=== PATIENT | male | born 1930 | race Caucasian/White ===

== ENCOUNTER → 2016-10-24 | Outpatient (CLI) | payer MEDICARE, BC ==
[2016-10-24 14:27] LABS: Aty Lym Flag Marked; CH 29.6; HCT 39.9 % (39.0-53.0); HDW 3.01; HGB 13.2 gm/dL (13.0-17.5); Hypochromasia Slight; MCH 30.8 pg (25.0-35.0); MCHC 33.1 g/dL (31.0-37.0); Mean Platelet Volume 7.3; RBC 4.29 m/uL (4.30-5.90); RDW 14.8 % (11.5-15.5); WBC 9.6 k/uL (3.8-10.6); WBC (Perox) 9.68
[2016-10-24 14:29] LABS: INR 0.9 (<1.1); Partial Thromboplastin Time 22.9 sec (22.0-30.0); Prothrombin Time 9.6 sec (9.0-12.0)
[2016-10-24 14:36] LABS: ALT 27 U/L (21-72); AST 15 U/L (17-59); Alkaline Phosphatase 94 U/L (38-126); Anion Gap 7 mmol/L; Blood Urea Nitrogen 19 mg/dL (9-20); Calcium 8.9 mg/dL (8.4-10.2); Carbon Dioxide 28 mmol/L (22-30); Chloride 105 mmol/L (98-107); Glucose 219 mg/dL (74-99); Non-African American GFR(MDRD) 56 (>60 ml/min/1.73 sqM); Potassium 4.7 mmol/L (3.5-5.1); Sodium 140 mmol/L (137-145); Total Bilirubin 0.6 mg/dL (0.2-1.3); Total Protein 5.1 g/dL (6.3-8.2)
[2016-10-24 15:26] LABS: Add Differential Manual Differential
[2016-10-24 15:34] LABS: Band Neutrophils % 0.5 %; Nucleated Red Blood Cells 0 /100 WBC (0-0); Total Cells Counted 200
--- NOTE | 2016-10-27 08:16 | XR ---
EXAMINATION TYPE: XR chest 2V DATE OF EXAM: 10/24/2016 COMPARISON: Prior chest x-ray 09/08/2014 HISTORY: Cough, R05. TECHNIQUE: Frontal and lateral views of the chest are obtained. FINDINGS: Metallic stent graft in the proximal aorta is now present. Atherosclerotic and ectatic aor ta is present. There is chronic parenchymal change with basilar atelectasis and/or fibrosis. There is no suspicious focal airspace opacity, pleural effusion, or pneumothorax seen bilaterally. Osseous st ructures are intact. Cholecystectomy clips are noted. IMPRESSION: Chronic changes without suspicious acute pulmonary process identified.
== END | disposition home or self-care (01) ==
LOC: RADXRMAIN 13:05
PROVIDERS: ATTEND Family Medicine
DX: C95.90 Leukemia, unspecified not having achieved remission (principal); R91.8 Other nonspecific abnormal finding of lung field; R05 Cough; D64.9 Anemia, unspecified; E11.9 Type 2 diabetes mellitus without complications
CPT/HCPCS: 36415; 71020; 80053; 85025; 85610; 85730

== ENCOUNTER 2016-11-23 14:35 | Inpatient (IN) | payer MEDICARE, BC ==
[2016-11-23] MEDS ORDERED: SODIUM CHLORIDE 0.9% 1,000 ML IV STA (14:44)
[2016-11-23] MEDS ORDERED: ONDANSETRON 4 MG/2 ML VIAL IVP STA (14:44)
[2016-11-23] MEDS ORDERED: PANTOPRAZOLE 40 MG/10 ML VIAL IVP STA (14:44)
[2016-11-23] MEDS ORDERED: AZITHROMYCIN 500 MG TAB PO STA (14:46)
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
[2016-11-23 15:20] LABS: Aty Lym Flag Marked; CH 30.2; CHCM 32.8; HCT 41.7 % (39.0-53.0); HDW 2.91; MCH 31.2 pg (25.0-35.0); MCHC 33.6 g/dL (31.0-37.0); MCV 92.8 fL (80.0-100.0); Mean Platelet Volume 7.7; RBC 4.49 m/uL (4.30-5.90); RDW 14.1 % (11.5-15.5); WBC (Perox) 13.76
[2016-11-23 15:30] LABS: Partial Thromboplastin Time 23.5 sec (22.0-30.0); Prothrombin Time 10.6 sec (9.0-12.0)
[2016-11-23 15:32] LABS: ALT 31 U/L (21-72); AST 30 U/L (17-59); Alkaline Phosphatase 113 U/L (38-126); Anion Gap 11 mmol/L; Blood Urea Nitrogen 18 mg/dL (9-20); Calcium 9.6 mg/dL (8.4-10.2); Carbon Dioxide 22 mmol/L (22-30); Chloride 105 mmol/L (98-107); Glucose 249 mg/dL (74-99); Non-African American GFR(MDRD) 58 (>60 ml/min/1.73 sqM); Phosphorous 3.3 mg/dL (2.5-4.5); Potassium 4.7 mmol/L (3.5-5.1); Sodium 138 mmol/L (137-145); Total Bilirubin 1.2 mg/dL (0.2-1.3); Total Protein 5.5 g/dL (6.3-8.2)
[2016-11-23 15:38] LABS: Add Differential Manual Differential
[2016-11-23 15:39] LABS: Creatine Kinase 24 U/L (55-170)
[2016-11-23 15:41] LABS: Manual Review Performed; Nucleated Red Blood Cells 0 /100 WBC (0-0); RBC Morphology Normal; Total Cells Counted 100
[2016-11-23 15:46] LABS: Appearance,Urine Clear (Clear); Bilirubin,Urine Negative (Negative); Glucose,Urine (UA) 4+ (Negative); Leukocyte Esterase,Urine Negative (Negative); Nitrite,Urine Negative (Negative); Particle Count 555; Protein,Urine 2+ (Negative); RBC,Urine 1 /hpf (0-5); Squamous Epithelial Cell,Urine 1 /hpf (0-4); UA Billing (MACRO vs. MICRO) MICRO; Urobilinogen,Urine <2.0 mg/dL (<2.0); WBC,Urine 11 /hpf (0-5)
[2016-11-23 15:48] LABS: Ketones,Urine 2+ (Negative)
[2016-11-23 15:53] LABS: Creatine Kinase MB 0.5 ng/mL (0.0-2.4); Troponin I <0.012 ng/mL (0.000-0.034)
[2016-11-23] MEDS ORDERED: ONDANSETRON 4 MG/2 ML VIAL IVP PRN (18:58)
[2016-11-23] MEDS ORDERED: SODIUM CHLORIDE 0.9% 1,000 ML IV ONE (18:58)
--- NOTE | 2016-11-23 19:00 | ED ---
Medical Decision Making - Medical Decision Making [address] ER for evaluation. Patient to ER for evaluation nausea vomiting, upon discharge patient remained to continuing vomit, patient be admitted for observation, symptom control - Lab Data Result diagrams: 11/23/16 15:10 11/23/16 15:10 Lab Results 11/23/16 11/23/16 11/23/16 Range/Units 15:10 15:10 15:10 WBC 14.0 H (3.8-10.6) k/uL RBC 4.49 (4.30-5.90) m/uL Hgb 14.0 (13.0-17.5) gm/dL Hct 41.7 (39.0-53.0) % MCV 92.8 (80.0-100.0) fL MCH 31.2 (25.0-35.0) pg MCHC 33.6 (31.0-37.0) g/dL RDW 14.1 (11.5-15.5) % Plt Count 146 L (150-450) k/uL Neutrophils % (Manual) 59 % Lymphocytes % (Manual) 30 % Monocytes % (Manual) 11 % Neutrophils # (Manual) 8.26 H (1.3-7.7) k/uL Lymphocytes # (Manual) 4.20 (1.0-4.8) k/uL Monocytes # (Manual) 1.54 H (0-1.0) k/uL Nucleated RBCs 0 (0-0) /100 WBC Manual Slide Review Performed RBC Morphology Normal PT (9.0-12.0) sec INR (<1.2) APTT (22.0-30.0) sec Sodium 138 (137-145) mmol/L Potassium 4.7 (3.5-5.1) mmol/L Chloride 105 (98-107) mmol/L Carbon Dioxide 22 (22-30) mmol/L Anion Gap 11 mmol/L BUN 18 (9-20) mg/dL Creatinine 1.20 (0.66-1.25) mg/dL Est GFR (MDRD) Af Amer >60 (>60 ml/min/1.73 sqM) Est GFR (MDRD) Non-Af 58 (>60 ml/min/1.73 sqM) Glucose 249 H (74-99) mg/dL Plasma Lactic Acid [place] (0.7-2.0) mmol/L Calcium 9.6 (8.4-10.2) mg/dL Phosphorus 3.3 (2.5-4.5) mg/dL Magnesium 2.0 (1.6-2.3) mg/dL Total Bilirubin 1.2 (0.2-1.3) mg/dL AST 30 (17-59) U/L ALT 31 (21-72) U/L Alkaline Phosphatase 113 (38-126) U/L Total Creatine Kinase 24 L (55-170) U/L CK-MB (CK-2) 0.5 (0.0-2.4) ng/mL CK-MB (CK-2) Rel Index 2.1 Troponin I <0.012 (0.000-0.034) ng/mL Total Protein 5.5 L (6.3-8.2) g/dL Albumin 3.7 (3.5-5.0) g/dL Urine Color Urine Appearance (Clear) Urine pH (5.0-8.0) Ur Specific [place] (1.001-1.035) Urine Protein (Negative) Urine Glucose (UA) (Negative) Urine Ketones (Negative) Urine Blood (Negative) Urine Nitrite (Negative) Urine Bilirubin (Negative) Urine Urobilinogen (<2.0) mg/dL Ur Leukocyte Esterase (Negative) Urine RBC (0-5) /hpf Urine WBC (0-5) /hpf Ur Squamous Epith Cells (0-4) /hpf Hyaline Casts (0-2) /lpf 11/23/16 11/23/16 11/23/16 Range/Units 15:10 15:10 15:20 WBC (3.8-10.6) k/uL RBC (4.30-5.90) m/uL Hgb (13.0-17.5) gm/dL Hct (39.0-53.0) % MCV (80.0-100.0) fL MCH (25.0-35.0) pg MCHC (31.0-37.0) g/dL RDW (11.5-15.5) % Plt Count (150-450) k/uL Neutrophils % (Manual) % Lymphocytes % (Manual) % Monocytes % (Manual) % Neutrophils # (Manual) (1.3-7.7) k/uL Lymphocytes # (Manual) (1.0-4.8) k/uL Monocytes # (Manual) (0-1.0) k/uL Nucleated RBCs (0-0) /100 WBC Manual Slide Review RBC Morphology PT 10.6 (9.0-12.0) sec INR 1.0 (<1.2) APTT 23.5 (22.0-30.0) sec Sodium (137-145) mmol/L Potassium (3.5-5.1) mmol/L Chloride (98-107) mmol/L Carbon Dioxide (22-30) mmol/L Anion Gap mmol/L BUN (9-20) mg/dL Creatinine (0.66-1.25) mg/dL Est GFR (MDRD) Af Amer (>60 ml/min/1.73 sqM) Est GFR (MDRD) Non-Af (>60 ml/min/1.73 sqM) Glucose (74-99) mg/dL Plasma Lactic Acid [place] 1.5 (0.7-2.0) mmol/L Calcium (8.4-10.2) mg/dL Phosphorus (2.5-4.5) mg/dL Magnesium (1.6-2.3) mg/dL Total Bilirubin (0.2-1.3) mg/dL AST (17-59) U/L ALT (21-72) U/L Alkaline Phosphatase (38-126) U/L Total Creatine Kinase (55-170) U/L CK-MB (CK-2) (0.0-2.4) ng/mL CK-MB (CK-2) Rel Index Troponin I (0.000-0.034) ng/mL Total Protein (6.3-8.2) g/dL Albumin (3.5-5.0) g/dL Urine Color Yellow Urine Appearance Clear (Clear) Urine pH 6.0 (5.0-8.0) Ur Specific [place] 1.020 (1.001-1.035) Urine Protein 2+ H (Negative) Urine Glucose (UA) 4+ H (Negative) Urine Ketones 2+ H (Negative) Urine Blood Trace H (Negative) Urine Nitrite Negative (Negative) Urine Bilirubin Negative (Negative) Urine Urobilinogen <2.0 (<2.0) mg/dL Ur Leukocyte Esterase Negative (Negative) Urine RBC 1 (0-5) /hpf Urine WBC 11 H (0-5) /hpf Ur Squamous Epith Cells 1 (0-4) /hpf Hyaline Casts 3 H (0-2) /lpf Disposition Clinical Impression: Dehydration, Nausea & vomiting Disposition: ADMITTED IP TO THIS HOSP Condition: Good Instructions: Acute Nausea and Vomiting (ED) Referrals: Dayami Rodriguez DO [Primary Care Provider] - 1-2 days
[2016-11-23] MEDS ORDERED: VANCOMYCIN IVPB ONE (20:14)
[2016-11-23] MEDS ORDERED: SODIUM CHLORIDE 0.9% IVPB ONE (20:14)
[2016-11-23] MEDS ORDERED: IV VANCOMYCIN PER PHARMACY 1 EACH MISC MISCELLANE PRN (20:14)
[2016-11-23] MEDS ORDERED: NON-FORMULARY DRUG (Canagliflozin [Invokana] 100 MG) PO SCH (20:15)
[2016-11-23] MEDS ORDERED: HYDROcodone/APAP 5-325MG 1 EACH TAB PO PRN (20:15)
[2016-11-23] MEDS ORDERED: HYDROmorphone 1 MG/ML 1 ML SYRINGE IVP PRN (20:15)
[2016-11-23 20:34] LABS: Glucose,Whole Blood 284 mg/dL (75-99)
[2016-11-23 20:38] VITALS: BMI 24.4
--- NOTE | 2016-11-23 20:56 | XR ---
EXAMINATION TYPE: XR chest 1V portable DATE OF EXAM: 11/23/2016 COMPARISON: October 24, 2016 HISTORY: Heart valve replacement. Patient date he is sick. TECHNIQUE: Single frontal view of the chest is obtained. FINDINGS: There is no focal air space opacity, pleural effusion, or pneumothorax seen. The cardiac silhouette size is within normal limits. The osseous structures are intact. Aortic valve replacemen t is noted. There are calcifications identified in the aortic arch. IMPRESSION: No change in appearance of the chest.
--- NOTE | 2016-11-23 21:27 | CT ---
EXAMINATION TYPE: CT brain neck chest wo con DATE OF EXAM: 11/23/2016 COMPARISON: NONE HISTORY: Basal cell cancer on face. Weakness. CT DLP: 1870.00 mGycm Automated exposure control for dose reduction was used. FINDINGS: The appearances brain is unchanged when compared to the previous study from January 11, 2016. There is no acute hemorrhage or major vessel territorial infarct. There is no mass, mass effect, or midlin e shift. There is a vague hypodense area in the right frontal lobe adjacent to the anterior horn righ t lateral ventricle which is stable. There is mild cortical atrophy. The central airway is patent. The parotid glands and submandibular glands are normal. There is a leve l 1 b lymph node on the right which measures 6 mm in diameter. There is multiple soft tissue densitie s on the right cheek. The most superior one measures 2.9 x 13.6 cm. The more inferior nodule measures 17.6 x 11.1 cm. These could be related to the patient's known basal cell cancer. There is bibasilar atelectasis which is dependent. Some traction bronchiectasis in the lower lung fie lds is also noted. There is been an aortic valve replacement. There is a 3 mm pulmonary nodule noted in the right upper lobe. There is no pneumothorax. There is no pericardial effusion. There is a preca rinal lymph node which measures 7.7 cm in diameter. IMPRESSION: THERE IS A LEVEL 1B LYMPH NODE ON THE RIGHT WHICH MEASURES 6 MM IN DIAMETER AND 2 SOFT TISSUE NODULES ARE NOTED IN THE PATIENT'S RIGHT CHEEK.
[2016-11-23] MEDS: INSULIN LISPRO (humaLOG) 300 UNIT/3 ML VIAL SQ SCH (22:36)
[2016-11-23] MEDS: VANCOMYCIN 1,500 MG in SODIUM CHLORIDE 0.9% 250 ML IVPB SCH (22:36)
[2016-11-24] MEDS: CEFEPIME 2 GM in SODIUM CHLORIDE 0.9% 50 ML IVPB SCH ×2 (01:32→08:13)
[2016-11-24] MEDS ORDERED: ACETAMINOPHEN TAB 325 MG TAB PO PRN (02:53)
[2016-11-24 03:23] LABS: Glucose,Whole Blood 230 mg/dL (75-99)
[2016-11-24 03:27] LABS: Aty Lym Flag Marked; CHCM 32.2; HCT 42.2 % (39.0-53.0); HDW 2.88; HGB 13.1 gm/dL (13.0-17.5); MCV 96.7 fL (80.0-100.0); RBC 4.37 m/uL (4.30-5.90); RDW 14.9 % (11.5-15.5); WBC 14.2 k/uL (3.8-10.6); WBC (Perox) 15.15
--- NOTE | 2016-11-24 03:29 | XR ---
EXAM: XR Chest, 1 View CLINICAL HISTORY: Reason: r/o aspiration TECHNIQUE: Frontal view of the chest. COMPARISON: 11/23/2016 FINDINGS: There is no focal airspace opacity, pleural effusion, or pneumothorax seen. Chronic interstitial lung markings are unchanged. Cardiac silhouette size is within normal limits. Tortuous descending aorta is again seen with associated mild/moderate atherosclerotic vascular calcifications. Aortic valve replacement is again noted. IMPRESSION: No change in appearance of the chest.
[2016-11-24] MEDS ORDERED: ACETAMINOPHEN SUPPOSITORY 650 MG SUPP RECTAL PRN (03:37)
[2016-11-24 03:41] LABS: Add Differential Manual Differential
[2016-11-24 03:42] LABS: Anion Gap 11 mmol/L; Blood Urea Nitrogen 20 mg/dL (9-20); Calcium 8.9 mg/dL (8.4-10.2); Carbon Dioxide 18 mmol/L (22-30); Chloride 107 mmol/L (98-107); Glucose 232 mg/dL (74-99); Non-African American GFR(MDRD) >60 (>60 ml/min/1.73 sqM); Potassium 4.1 mmol/L (3.5-5.1); Sodium 136 mmol/L (137-145)
[2016-11-24 03:45] LABS: Manual Review Performed; Nucleated Red Blood Cells 0 /100 WBC (0-0); Total Cells Counted 100
[2016-11-24] MEDS ORDERED: ACETAMINOPHEN IV (For NPO) 1,000 MG in EMPTY BAG 1 BAG IVPB PRN (05:37)
[2016-11-24 06:47] LABS: Glucose,Whole Blood 214 mg/dL (75-99)
[2016-11-24] MEDS: ENOXAPARIN 40 MG/0.4 ML SYRINGE SQ SCH (09:08)
[2016-11-24] MEDS: INSULIN LISPRO (humaLOG) 300 UNIT/3 ML VIAL SQ SCH ×4 (10:05→22:10)
[2016-11-24 11:55] LABS: Hemoglobin A1C 8.1 % (4.2-6.1)
[2016-11-24] MEDS: ATORVASTATIN 40 MG TAB PO SCH (12:06)
[2016-11-24] MEDS: MULTIVITAMINS, THERA 1 EACH TAB PO SCH (12:06)
[2016-11-24] MEDS: ASPIRIN 81 MG CHEW PO SCH (12:06)
[2016-11-24] MEDS: VALSARTAN 80 MG TAB PO SCH (12:06)
[2016-11-24 12:17] LABS: Glucose,Whole Blood 227 mg/dL (75-99)
[2016-11-24] MEDS: INSULIN DETEMIR 100 UNIT/ML 10 ML VIAL SQ SCH (12:37)
[2016-11-24] MEDS ORDERED: RX INFO: IV CONTRAST WAS GIVEN 1 EACH MISC MISCELLANE PRN (12:57)
--- NOTE | 2016-11-24 13:20 | HP ---
DATE OF SERVICE: 11/23/2016 CHIEF COMPLAINT: Nausea and vomiting as well as fever and neck pain. HISTORY OF PRESENT ILLNESS : This 86-year-old gentleman with the past medical history of multiple medical problems including CVA, TIA, diabetes mellitus type 2, hypertension, being followed by Dr. Dayami Rodriguez as an outpatient, had recent diagnosis apparently of basal cell carcinoma. The patient apparently had been lymphadenopathy also. The patient apparently receiving radiation therapy from [place], exact details are not available at this time. Today, the patient is having nausea, vomiting and the patient also has fever and also neck pain. The patient came to [facility] and admitted for further evaluation and treatment. There is no history of any rigors or chills. No history of headache, loss of consciousness or seizures at this time. PAST MEDICAL HISTORY: History of CVA, TIA, diabetes mellitus, hypertension, hyperlipidemia, history of GERD. MEDICATIONS PRIOR TO ADMISSION: 1. Diovan 80 mg t.i.d. 2. Multivitamin one p.o. daily. 3. Levemir 20 unit subcu q a.m. 4. Invokana 100 mg q48h. 5. Lipitor 40 mg q a.m. 6. Ecotrin 81 mg q.a.m. ALLERGIES: None. FAMILY HISTORY: History of CVA, TIA, cardiac issues. SOCIAL HISTORY: No history of smoking, no history of alcohol intake. REVIEW OF SYSTEMS: ENT: As mentioned earlier. CARDIOVASCULAR: No angina or palpitation. RESPIRATORY: No cough or hemoptysis. GI: No nausea. : No dysuria. NERVOUS SYSTEM: No numbness or weakness. IMMUNOLOGY/ALLERGY: No asthma, hayfever. MUSCULOSKELETAL: As mentioned earlier. HEMATOLOGY: No history of anemia. ENDOCRINE: History of diabetes. CONSTITUTIONAL: As mentioned earlier. PSYCHIATRIC: As mentioned earlier. PHYSICAL EXAMINATION: Alert and oriented x3. Pulse 83, blood pressure 116/72, respirations 20, temperature 98.8, pulse ox 93% on room air. HEENT: Conjunctivae normal. Oral mucosa moist. Significant lesion on the right side of the face suggestive of basal cell carcinoma with upper cervical lymphadenopathy and ( ) lymphadenopathy also. Mildly tender, erythematous. No discharge noted. NECK: No jugular venous distention. No thyroid enlargement, no lymph node enlargement. CARDIOVASCULAR: S1/.S2. RESPIRATIONS: Diminished breath sounds at the bases. No rhonch, no crackles. ABDOMEN: Soft, nontender. No mass palpable. LEGS: No edema, no swelling. NERVOUS SYSTEM: Higher function as mentioned. Moves all four limbs. No focal weakness. LYMPHATICS. As noted above. SKIN: No rash. LABS: WBC 14, hemoglobin 14. UA noted. ASSESSMENT: 1. Fever, possible sepsis with cellulitis. 2. Possible basal cell carcinoma with metastasis on radiation therapy. 3. Increased WBC. 4. History of diabetes type 2. 5. History of cerebrovascular accident and transient ischemic attack. 6. Hypertension. 7. Hyperlipidemia. 8. History of pneumonia. 9. History of methicillin-resistant Staphylococcus aureus. RECOMMENDATIONS AND DISCUSSION: This 86-year-old gentleman who presented with multiple medical problems, will be continued on current medications, monitor patient closely continue symptomatic treatment. Broad spectrum antibiotics will be initiated, vancomycin as well as cefepime. Hematology/oncology consultation. Obtain cultures, CT scans. Prognosis guarded because of multiple complex medical issues. See orders for further details. Further recommendations to follow. This patient will require more than 23 hour stay and more than a 2 night stay to diagnose and manage above mentioned medical issues. This could be life- threatening. See orders for further details. MTDD
[2016-11-24] MEDS: VANCOMYCIN 1,500 MG in SODIUM CHLORIDE 0.9% 250 ML IVPB SCH (13:26)
[2016-11-24] MEDS: IOHEXOL 350 MG/ML 25 ML BOTTLE (ORAL USE) PO PRN ×3 (13:31→14:44)
[2016-11-24 17:22] LABS: Glucose,Whole Blood 210 mg/dL (75-99)
--- NOTE | 2016-11-24 17:40 | CT ---
EXAMINATION TYPE: CT abdomen pelvis w con DATE OF EXAM: 11/24/2016 COMPARISON: NONE HISTORY: Patient complains of abdominal pain, nausea, and vomiting. CT DLP: 746.7 mGycm Automated exposure control for dose reduction was used. TECHNIQUE: Helical acquisition of images was performed from the lung bases through the pelvis. CONTRAST: Performed with Oral Contrast and with IV Contrast, patient injected with 100 mL of Omnipaque 300. FINDINGS: There is some interstitial coarse density at the lung bases. There is no pleural effusion. There is n o pericardial effusion. There is an apparent aortic valve prosthesis. Liver spleen appear normal. Bile ducts are not dilated. There are clips from cholecystectomy. There is no adrenal mass. There are numerous bilateral renal cortical cysts that measure up to 4.5 cm. Ther e is no hydronephrosis. Ureters are not dilated. There is metal artifact from right hip prosthesis. B ladder distends smoothly. There is no sign of a pelvic mass. There is no sign of bowel obstruction. A ppendix appears normal. I see no intestinal wall thickening. There are no dilated loops. There is cynthia e fatty infiltration of the pancreas. The bony structures appear intact. Abdominal aorta is atheromat ous. There is no retroperitoneal adenopathy. There is small umbilical hernia that contains fat. IMPRESSION: INTERSTITIAL FIBROTIC CHANGES AT THE LUNG BASES WITH MILD ATELECTASIS. ATHEROSCLEROTIC VASCULAR DISEA SE. MULTIPLE RENAL CORTICAL CYSTS. CARDIOMEGALY. No sign of acute abdomen and pelvis.
[2016-11-24] MEDS: AMPICILLIN-SULBACTAM 3 GM in SODIUM CHLORIDE 0.9% 100 ML IVPB SCH (18:10)
[2016-11-24 20:40] LABS: Glucose,Whole Blood 212 mg/dL (75-99)
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
[2016-11-25] MEDS: AMPICILLIN-SULBACTAM 3 GM in SODIUM CHLORIDE 0.9% 100 ML IVPB SCH ×3 (01:28→12:07)
[2016-11-25] MEDS: VANCOMYCIN 1,500 MG in SODIUM CHLORIDE 0.9% 250 ML IVPB SCH (06:55)
[2016-11-25] MEDS: INSULIN LISPRO (humaLOG) 300 UNIT/3 ML VIAL SQ SCH ×4 (06:56→21:34)
[2016-11-25 06:59] LABS: Glucose,Whole Blood 93 mg/dL (75-99)
--- NOTE | 2016-11-25 07:51 | PN ---
DATE OF SERVICE: 11/24/2016 This 86-year-old gentleman admitted with fever and possible cellulitis also had extensive facial lesions and malignancy also. The patient also underwent abdomen pelvis CAT scan today, which showed interstitial fibrotic changes. Infectious disease evaluation has also been sought. The preliminary blood culture is showing gram-positive cocci and chains. PAST MEDICAL HISTORY: Reviewed. REVIEW OF SYSTEM: CARDIOVASCULAR SYSTEM: No angina. RESPIRATORY SYSTEM: As mentioned earlier. GI: As mentioned earlier. : No dysuria. NERVOUS SYSTEM: No numbness or weakness. Current medications are: 1. Tylenol. 2. [place] 5/325 mg p.o. q.6. 3. Aspirin. 4. Lipitor. 5. Lovenox. 6. Dilaudid. 7. Levemir. 8. Humalog. 9. Multivitamins. 10. Zofran. 11. Diovan. PHYSICAL EXAMINATION: Patient is alert and oriented x3. Pulse is 71, blood pressure 137/63, respirations 18, temperature 98.8, pulse ox 95% on room air. HEENT: Conjunctivae normal. NECK: No jugular venous distention. CARDIOVASCULAR: S1 and S2 muffled. RESPIRATORY: Breath sounds diminished at the bases. A few scattered rhonchi. No crackles. ABDOMEN: Soft, nontender. No mass palpable. LEGS: No edema, no swelling. NERVOUS SYSTEM: No focal deficits. EXAMINATION OF SKIN: Significant skin lesions of possible basal cell malignancy as well as also present. Labs are WBC 14.2, platelets are 116. Accu-Cheks are noted . ASSESSMENT: 1. Fever, possible sepsis with acute cellulitis with a gram positive cocci and chains. 2. 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 3. Increased WBC. 4. Diabetes mellitus type 2. 5. History of cerebrovascular accident and transient ischemic attack. 6. Hypertension. 7. Hyperlipidemia. RECOMMENDATIONS AND DISCUSSION: Recommend to continue current medications. Continue with monitoring and symptomatic treatment. Otherwise, at this time I would recommend to continue with IV antibiotics. Follow up closely with Infectious Disease and as well as Oncology. Repeat labs in the morning. Monitor blood sugars closely. Further recommendations to follow. MTDD
[2016-11-25] MEDS: VALSARTAN 80 MG TAB PO SCH (08:24)
[2016-11-25] MEDS: ASPIRIN 81 MG CHEW PO SCH (08:24)
[2016-11-25] MEDS: ATORVASTATIN 40 MG TAB PO SCH (08:24)
[2016-11-25] MEDS: INSULIN DETEMIR 100 UNIT/ML 10 ML VIAL SQ SCH (08:24)
[2016-11-25] MEDS: ENOXAPARIN 40 MG/0.4 ML SYRINGE SQ SCH (08:24)
[2016-11-25] MEDS: MULTIVITAMINS, THERA 1 EACH TAB PO SCH (08:24)
[2016-11-25] MEDS ORDERED: RX INFO: IV CONTRAST WAS GIVEN 1 EACH MISC MISCELLANE PRN (08:57)
[2016-11-25 09:01] LABS: Anion Gap 7 mmol/L; Blood Urea Nitrogen 23 mg/dL (9-20); Calcium 8.2 mg/dL (8.4-10.2); Carbon Dioxide 25 mmol/L (22-30); Chloride 106 mmol/L (98-107); Glucose 84 mg/dL (74-99); Non-African American GFR(MDRD) >60 (>60 ml/min/1.73 sqM); Potassium 3.8 mmol/L (3.5-5.1); Sodium 138 mmol/L (137-145)
[2016-11-25 09:18] LABS: Aty Lym Flag Marked; CH 29.9; CHCM 32.6; HCT 40.2 % (39.0-53.0); HDW 2.93; HGB 13.2 gm/dL (13.0-17.5); MCH 30.3 pg (25.0-35.0); MCHC 32.8 g/dL (31.0-37.0); MCV 92.3 fL (80.0-100.0); Mean Platelet Volume 8.3; RBC 4.35 m/uL (4.30-5.90); RDW 14.4 % (11.5-15.5); WBC 11.8 k/uL (3.8-10.6); WBC (Perox) 11.27
--- NOTE | 2016-11-25 09:50 | CONS ---
DATE OF SERVICE: 11/24/2016 Reason for consultation is bacteremia. HISTORY OF PRESENT ILLNESS: The patient is an 86-year-old male who was brought into the ER at [facility] 11/23/2016 in the afternoon for which he complains of nausea and vomiting. Currently, his symptoms started the night before and the patient had multiple episodes of vomiting. Patient did not recall if he has eaten anything unusual. He did eat dinner with the family and none of the other family members have the same symptoms. The patient denies any abdominal pain and no diarrhea. The patient did not recall if he has any fever at home; however, he went to the ER the patient was noticed to have a fever of 102.7 degrees Fahrenheit. The patient also had elevated white count of 14,000. Patient has been given Zofran; however, he did have persistent vomiting and the patient has been admitted to the hospital. He did have a chest x-ray. We did not show any evidence of any consolidation. He did have blood culture drawn which is not showing gram-positive cocci in chains. The patient has been treated with cefepime and vancomycin. I was asked to see the patient for further recommendation requiring antibiotic therapy. REVIEW OF SYSTEMS: CONSTITUTIONAL: Positive for weakness and a fever. EYES: No complaint. ENT: No complaint. RESPIRATORY: No complaint. CARDIOVASCULAR: No complaint. GENITOURINARY: No complaint. GASTROINTESTINAL: As per HPI. MUSCULOSKELETAL: No complaint. INTEGUMENTARY: No complaint. PSYCHOLOGICAL: No complaint. ENDOCRINE: No complaint. NEUROLOGIC: No complaint. PAST MEDICAL HISTORY: Significant for diabetes mellitus, hypertension, hyperlipidemia, gastroesophageal reflux disease, pneumonia, leukemia, CVA and a TIA. Past history of MRSA and pneumonia. PAST SURGICAL HISTORY: Heart catheterization, cholecystectomy, plastic surgery , aortic valve replacement. SOCIAL HISTORY: No history of smoking, drinking or drug use. FAMILY HISTORY: Father has a CVA, TIA. ALLERGIES: No known drug allergies. Medications include, patient is currently on Tylenol, Benedict, cefepime, aspirin, vancomycin, Lipitor, Dilaudid, Levemir, Humalog, Zofran and Diovan. On examination, blood pressure is 137/63 with a pulse of 71, temperature 98.8. He is 95% on room air. General description is an elderly male, lying in bed, in no distress. No tachypnea or accessory muscle in respirations use. HEENT examination shows no pallor, scleral icterus. Oral mucosa is dry. NECK: Trachea is central, no thyromegaly. LUNGS: Unlabored breathing, clear to auscultation anteriorly. HEART: S1, S2, regular rate and rhythm. ABDOMEN: Soft, no tenderness, no guarding or rigidity. EXTREMITIES: No edema of the feet. SKIN EXAMINATION: No rash or mass palpable. Neurologically, patient is awake, alert, oriented x3. Mood and affect normal. LABS: Hemoglobin is 13, white count is 14.2 with a BUN of 20, creatinine 1.0. Blood cultures with gram positive cocci in chains. The patient's urine has not been significantly positive. DIAGNOSTIC IMPRESSION AND PLAN: Patient admitted to the hospital with intractable nausea and vomiting in a patient who is did have a component of systemic inflammatory response syndrome in a patient with fever, elevated white count, now with bacteremia with a question of possible abdominal source. PLAN: 1. Will obtain a CT of the abdomen and pelvis. 2. Patient will continue vanco; however, will discontinue cefepime. Start the patient on Unasyn. 3. Depending upon the final ID of this pathogen and CT, will determine further workup and adjust medication if needed. 4. Thank you for this consultation. Family was present at the bedside, their questions were answered. ZOEY
[2016-11-25 10:59] LABS: Add Differential Manual Differential
[2016-11-25 11:02] LABS: Manual Review Performed; Nucleated Red Blood Cells 0 /100 WBC (0-0); Total Cells Counted 100
[2016-11-25 12:07] LABS: Glucose,Whole Blood 133 mg/dL (75-99)
[2016-11-25 17:12] LABS: Glucose,Whole Blood 167 mg/dL (75-99)
--- NOTE | 2016-11-25 17:32 | CT ---
EXAMINATION TYPE: CT chest w con DATE OF EXAM: 11/25/2016 COMPARISON: NONE HISTORY: No Chest complaints at time of scan CT DLP: 392 mGycm Automated exposure control for dose reduction was used. CONTRAST: CT scan of the chest is performed with IV Contrast, patient injected with 100 mL of Omnipaque 300. FINDINGS: There are small bilateral pleural effusions. There is a patchy reticular nodular infiltrate in the po sterior segment of the right upper lobe. There is some focal atelectasis in the superior segment righ t lower lobe adjacent to the right upper lobe infiltrate. There are bilateral bronchial lymph nodes t hat measure up to 2.5 cm. Thoracic aorta is atheromatous. There is apparent aortic valve prosthesis. There is no evidence of dissection. There is a small pericardial effusion. There is some atelectasis at the posterior lung bases. Renal cortical cysts are noted. IMPRESSION: There is mild bronchial adenopathy. There is a patchy reticular nodular infiltrate in th e right upper lobe that appears to be new compared to the chest x-ray of 10/24/2016. This is consisten t with inflammatory process. Atherosclerotic vascular disease. Small pericardial effusion. Small pleural effusions. Patchy mild at electasis at the lung bases.
[2016-11-25] MEDS: ceFAZolin 2 GM in SODIUM CHLORIDE 0.9% 100 ML IVPB SCH ×2 (18:04→23:17)
[2016-11-25] MEDS ORDERED: VANCOMYCIN TROUGH DUE 1 EACH MISC MISCELLANE ONE (21:00)
[2016-11-25 21:11] LABS: Glucose,Whole Blood 210 mg/dL (75-99)
--- NOTE | 2016-11-25 21:42 | PN ---
DATE OF SERVICE: 11/25/2016 REASON FOR FOLLOWUP: Group B strep bacteremia. INTERVAL HISTORY: The patient is afebrile. He is overall feeling better. No further nausea or vomiting has been noted. Denies significant chest pain, shortness of breath or cough. No abdominal pain. The patient did have a wound on his right cheek area, currently being evaluated and treated at the [facility] with a previous history of radiation to the neck area. His did mention there was some erythema, but not recently, and no drainage from that site, and no other open wound. On examination, blood pressure is 145/67 with a pulse of 71, temperature 98.2. He is 92% on room air. General description is an elderly male lying in bed in no distress. HEENT EXAMINATION: Right facial cheek wound with some induration but no significant slough tissue or surrounding redness or any drainage. LUNGS: Unlabored breathing. Clear to auscultation anteriorly. HEART: S1, S2. Regular rate and rhythm. ABDOMEN: Soft. No tenderness. LABS: Hemoglobin is 13.2, white count 11.8. BUN of 23, creatinine 1.09. CT of abdomen and pelvis shows no active disease. DIAGNOSTIC IMPRESSION AND PLAN: Patient with group B strep bacteremia in a patient admitted to hospital with sepsis. Source is more likely the right-sided facial cellulitis with infected wound, as the patient has no other clinical focus of infection. Antibiotic will be adjusted to cefazolin and will reevaluate the patient tomorrow. Continue supportive care. [facility]
[2016-11-26 01:44] LABS: Glucose,Whole Blood 74 mg/dL (75-99)
[2016-11-26 06:48] LABS: Glucose,Whole Blood 141 mg/dL (75-99)
[2016-11-26 07:41] LABS: Anion Gap 7 mmol/L; Blood Urea Nitrogen 20 mg/dL (9-20); Calcium 8.4 mg/dL (8.4-10.2); Carbon Dioxide 26 mmol/L (22-30); Chloride 107 mmol/L (98-107); Glucose 122 mg/dL (74-99); Non-African American GFR(MDRD) >60 (>60 ml/min/1.73 sqM); Potassium 3.8 mmol/L (3.5-5.1); Sodium 140 mmol/L (137-145)
[2016-11-26 08:49] LABS: Aty Lym Flag Marked; CH 29.8; CHCM 32.3; HCT 40.4 % (39.0-53.0); HDW 2.92; HGB 13.3 gm/dL (13.0-17.5); MCH 30.6 pg (25.0-35.0); MCHC 32.9 g/dL (31.0-37.0); Mean Platelet Volume 8.8; RBC 4.34 m/uL (4.30-5.90); RDW 14.1 % (11.5-15.5); WBC (Perox) 10.45
[2016-11-26] MEDS: INSULIN LISPRO (humaLOG) 300 UNIT/3 ML VIAL SQ SCH ×4 (08:57→20:48)
[2016-11-26] MEDS: ATORVASTATIN 40 MG TAB PO SCH (10:01)
[2016-11-26] MEDS: ceFAZolin 2 GM in SODIUM CHLORIDE 0.9% 100 ML IVPB SCH ×3 (10:01→23:29)
[2016-11-26] MEDS: VALSARTAN 80 MG TAB PO SCH (10:01)
[2016-11-26] MEDS: MULTIVITAMINS, THERA 1 EACH TAB PO SCH (10:01)
[2016-11-26 10:03] LABS: Add Differential Manual Differential
[2016-11-26] MEDS: INSULIN DETEMIR 100 UNIT/ML 10 ML VIAL SQ SCH (10:03)
[2016-11-26] MEDS: ENOXAPARIN 40 MG/0.4 ML SYRINGE SQ SCH (10:04)
[2016-11-26] MEDS: ASPIRIN 81 MG CHEW PO SCH (10:05)
[2016-11-26 10:07] LABS: Nucleated Red Blood Cells 0 /100 WBC (0-0); Total Cells Counted 100
[2016-11-26 10:08] LABS: Manual Review Performed
--- NOTE | 2016-11-26 11:56 | PN ---
DATE OF SERVICE: 11/25/2016 This 86-year-old gentleman who was admitted with fever, possibly sepsis also had some cellulitis also. The cultures are growing strep agalactiae group B consistently from the urine and the blood. Patient is on IV antibiotics. Chest CT was done by Dr. Larkin today, which showed mild bronchial adenopathy, nodular infiltrate. Otherwise Infectious Disease has seen the patient and recommend the CT scan also. No chest pain, no palpitations. PAST MEDICAL HISTORY: Reviewed. REVIEW OF SYSTEMS: CARDIOVASCULAR: No angina. RESPIRATORY: As mentioned earlier. GI: No nausea. : No dysuria. NERVOUS SYSTEM: No numbness or weakness. Current medications are reviewed and include: 1. [place] 5 mg q.6 p.r.n. 2. Lipitor. 3. Cephazolin. 4. Dilaudid. 5. Levemir. 6. Multivitamins. 7. Diovan. PHYSICAL EXAMINATION: The patient is alert and oriented x3. Pulse is 76, blood pressure 133/50, respirations 17, temperature 98.2, pulse ox 98% on room air. HEENT: Conjunctivae normal. Examination of the face, right-sided facial lesions as well as lymphadenopathy also present. NECK: No jugular venous distention. CARDIOVASCULAR: S1, S2. RESPIRATORY: Breath sounds diminished at the bases. A few scattered rhonchi, no crackles. ABDOMEN: Soft, nontender, no mass palpable. LEGS: No edema, no swelling. LABS: WBC 7.8. Cultures are noted. ASSESSMENT: 1. Fever, possible sepsis with streptococcus agalactiae group B with acute cellulitis on the right-side of the face with possibly squamous cell carcinoma. 2. Possible basal cell carcinoma with metastasis on radiation therapy. 3. Increased WBC. 4. Diabetes type 2. 5. History of cerebrovascular accident, transient ischemic attack. 6. Hypertension. 7. Hyperlipidemia. RECOMMENDATIONS AND DISCUSSION: I recommend to continue the current medications, continue with monitoring and symptomatic treatment. Otherwise monitor the patient closely. CT scan has been reviewed. The primary source of infection seems to be cellulitis at this time. Please refer to Dr. Dougherty note for the etiology of the malignancy. The patient has been seen by multiple physicians including [facility]. Will continue to monitor. However, currently, the patient will be treated with IV antibiotics regarding sepsis and will await the repeat blood cultures, which are negative for the past 24-hours. Continue to monitor. Prognosis guarded. I discussed with family. ZOEY
[2016-11-26 12:06] LABS: Glucose,Whole Blood 276 mg/dL (75-99)
[2016-11-26 15:43] VITALS: RESP 16
[2016-11-26 17:34] LABS: Glucose,Whole Blood 186 mg/dL (75-99)
--- NOTE | 2016-11-26 18:03 | PN ---
DATE OF SERVICE: 11/26/16 REASON FOR FOLLOW UP: Streptococcal agalactiae bacteremia most likely right cheek wound. INTERVAL HISTORY: The patient is afebrile. The patient has been feeling better. Breathing comfortably. Denies significant pain to the right cheek area. Denies any significant chest pain or shortness of breath or cough. No abdominal pain or any diarrhea. On examination, blood pressure 116/50 with a pulse of 74. Temperature 98.3. He is 92% on room air. General description is an elderly male lying in the bed in no distress. Respiratory system unlabored breathing. Clear to auscultation anteriorly. Heart S1, S2 regular rate and rhythm. Abdomen soft. No tenderness. Right cheek wound with no significant cellulitis or any drainage. LABS: White count normal at 10.0 with BUN 20, creatinine 1.01. Follow-up blood cultures 11/24 so far negative. DIAGNOSTIC IMPRESSION AND PLAN: The patient with streptococcal agalactiae bacteremia, source likely right cheek wound with secondary cellulitis currently improving on Cefazolin with plan to finish therapy on po Keflex 500 mg daily for another ten days with outpatient follow-up. [facility]
--- NOTE | 2016-11-26 18:41 | PN ---
DATE OF SERVICE: 11/26/16 This 86 -year-old gentleman who was admitted with fever and possibly cellulitis of the face, also had Streptogalactaie Group B. The patient is on IV antibiotics. No chest pain. No palpitations. No fever. CT scan of the chest has been ordered. Dr. Larkin has been following the patient closely. On exam, the patient is alert and oriented times two. Pulse 76. Blood pressure 130/58. Respiratory rate 15. Temperature 98.6 degrees. Pulse ox 92 % on room air. HEENT: Conjunctivae normal. Neck: No JVD. CARDIOVASCULAR: S1, S2. Respiratory: Breath sounds diminished at the bases. Scattered rhonchi. No crackles. Abdomen soft, nontender. No mass palpable. LEGS: No edema. No swelling. TELEPHONE CLAIMS REPRESENTATIVE: No focal deficits. Examination of the face, swelling and lymphadenopathy present suggestive of malignancy. LABS: Platelets 112. Otherwise, microbiology showed streptogalactaie B. ASSESSMENT: 1. Fever, possible sepsis with streptogalactaie Group B with facial cellulitis on the right side with possible squamous cell or basal cell carcinoma. 2. Possible metastatic skin cancer with lymphadenopathy and radiation therapy. 3. Increased WBC. 4. Diabetes mellitus Type 2. RECOMMENDATIONS AND DISCUSSION: Recommend to continue the current medications, continue symptomatic treatment, continue IV antibiotics. Closely monitor. Guarded prognosis. Further recommendations to follow. Closely follow with infectious disease. MTDD
[2016-11-26 20:08] LABS: Glucose,Whole Blood 182 mg/dL (75-99)
[2016-11-27 07:42] LABS: Glucose,Whole Blood 96 mg/dL (75-99)
[2016-11-27 07:43] LABS: Aty Lym Flag Marked; CH 30.9; CHCM 32.8; HCT 42.5 % (39.0-53.0); HDW 3.06; HGB 13.8 gm/dL (13.0-17.5); MCH 30.7 pg (25.0-35.0); MCHC 32.5 g/dL (31.0-37.0); MCV 94.7 fL (80.0-100.0); Mean Platelet Volume 8.7; RBC 4.48 m/uL (4.30-5.90); WBC 11.7 k/uL (3.8-10.6); WBC (Perox) 11.54
[2016-11-27 07:57] LABS: Anion Gap 8 mmol/L; Blood Urea Nitrogen 16 mg/dL (9-20); Calcium 8.5 mg/dL (8.4-10.2); Carbon Dioxide 27 mmol/L (22-30); Chloride 106 mmol/L (98-107); Glucose 94 mg/dL (74-99); Non-African American GFR(MDRD) >60 (>60 ml/min/1.73 sqM); Potassium 3.5 mmol/L (3.5-5.1); Sodium 141 mmol/L (137-145)
[2016-11-27] MEDS: ceFAZolin 2 GM in SODIUM CHLORIDE 0.9% 100 ML IVPB SCH (08:28)
[2016-11-27] MEDS: INSULIN LISPRO (humaLOG) 300 UNIT/3 ML VIAL SQ SCH ×2 (08:28→12:58)
[2016-11-27] MEDS: ASPIRIN 81 MG CHEW PO SCH (08:33)
[2016-11-27] MEDS: ATORVASTATIN 40 MG TAB PO SCH (08:33)
[2016-11-27] MEDS: ENOXAPARIN 40 MG/0.4 ML SYRINGE SQ SCH (08:33)
[2016-11-27] MEDS: VALSARTAN 80 MG TAB PO SCH (08:33)
[2016-11-27] MEDS: MULTIVITAMINS, THERA 1 EACH TAB PO SCH (08:33)
[2016-11-27] MEDS: INSULIN DETEMIR 100 UNIT/ML 10 ML VIAL SQ SCH (08:38)
[2016-11-27 09:55] LABS: Add Differential Manual Differential
[2016-11-27 09:58] LABS: Nucleated Red Blood Cells 0 /100 WBC (0-0); Total Cells Counted 100
[2016-11-27 11:47] LABS: Glucose,Whole Blood 157 mg/dL (75-99)
[2016-11-27 14:54] VITALS: BP 131/65; PULSE 76; TEMP 97.8
--- NOTE | 2016-11-27 15:14 | P.DS ---
Providers Date of admission: 11/23/16 19:00 Attending physician: Eris Moreno Consults: 11/23/16 20:16 Consult Physician Routine Consulting Provider: Fuentes Larkin Consult Reason/Comments: malignancy Do you want consulting provider notified?: Yes 11/24/16 05:37 Consult Physician Routine Consulting Provider: Shaun Gandara Consult Reason/Comments: positive blood cultures Do you want consulting provider notified?: Yes Primary care physician: [facility] Course: This 86-year-old gentleman who was admitted with the cellulitis with the strep agalactiae group B was treated with IV antibiotics. Patient improved significantly. Infectious diseases saw the patient. On exam vitals stable. S1-S2 normal. Abdomen soft nontender. Face probably malignant skin lesions and lymphadenopathy present. This improved and discharged in a stable condition with guarded prognosis. Recommended and 35 minutes. Final diagnosis 1. 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 2. Possible metastatic skin cancer with lymphadenopathy and radiation therapy. 3 Increased WBC 4. Diabetes mellitus type II Patient Condition at Discharge: Good Plan - Discharge Summary New Discharge Prescriptions: New Cephalexin [Keflex] 500 mg PO Q6HR #40 cap HYDROcodone/APAP 5-325MG [[place] 5-325] 1 each PO Q6HR PRN #20 tab PRN Reason: Pain Continue Insulin Detemir [Levemir] 20 unit SQ QAM Valsartan [Diovan] 80 mg PO QAM Canagliflozin [Invokana] 100 mg PO Q48H Atorvastatin [Lipitor] 40 mg PO QAM Multivitamins, Thera [Multivitamin (formulary)] 1 tab PO QAM Aspirin EC [Ecotrin Low Dose] 81 mg PO QAM Discharge Medication List Atorvastatin [Lipitor] 40 mg PO QAM 09/03/14 [History] Canagliflozin [Invokana] 100 mg PO Q48H 09/03/14 [History] Insulin Detemir [Levemir] 20 unit SQ QAM 09/03/14 [History] Valsartan [Diovan] 80 mg PO QAM 09/03/14 [History] Aspirin EC [Ecotrin Low Dose] 81 mg PO QAM 11/23/16 [History] Multivitamins, Thera [Multivitamin (formulary)] 1 tab PO QAM 11/23/16 [History] Cephalexin [Keflex] 500 mg PO Q6HR #40 cap 11/27/16 [Rx] HYDROcodone/APAP 5-325MG [[place] 5-325] 1 each PO Q6HR PRN #20 tab 11/27/16 [Rx] Follow up Appointment(s)/Referral(s): Dayami Rodriguez DO [Primary Care Provider] - 3 Days Shaun Gandara MD [STAFF PHYSICIAN] - 1 Week Ambulatory/Diagnostic Orders: Complete Blood Count w/diff [LAB.AMB] Time Frame: 3 Days, Location: Determined By Patient Patient Instructions/Handouts: Cephalexin (By mouth), Hydrocodone/ Acetaminophen (By mouth), Acute Nausea and Vomiting (ED)
--- NOTE | 2016-11-27 17:46 | PN ---
DATE OF SERVICE: 11/27/2016 REASON FOR FOLLOW UP: Streptococcus agalactiae bacteremia. INTERVAL HISTORY: The patient is afebrile. He is breathing comfortably. The patient denies significant chest pain. No shortness of breath or cough or any abdominal pain or diarrhea. On examination, blood pressure 137/51 with a pulse of 73, temperature 97.3 and 91% on room air. GENERAL DESCRIPTION: Elderly male up in the chair in no distress. HEENT: No pallor or scleral icterus. Right face ulcerated lesion with no active cellulitis. LUNGS: Unlabored breathing. Clear to auscultation. HEART: S1/S2 regular. ABDOMEN: Soft, nontender. LABS: Hemoglobin 13.8, WBC 11.7 with a BUN of 16, creatinine 0.99. DIAGNOSTIC IMPRESSION: Patient with Streptococcus agalactiae bacteremia, source being the right cheek wound with secondary cellulitis. The patient has shown a lot of clinical improvement. Follow up blood culture has been negative. Plan to treat with p.o. Keflex 500 mg q6 hours for 10 days with outpatient follow up. ZOEY
--- NOTE | 2016-11-28 01:52 | P.PN ---
Subjective The patient continues to improve subjectively. He has not had any recurrence of fever, nausea and vomiting. Objective - Vital Signs Vital signs: Vital Signs Temp 97.8 F 11/27/16 14:53 Pulse 76 11/27/16 14:53 Resp 16 11/27/16 14:53 BP 131/65 11/27/16 14:53 Pulse Ox 92 L 11/27/16 14:53 Intake & Output 11/27/16 11/27/16 11/28/16 06:59 18:59 06:59 Intake Total 200 100 Output Total 100 Balance 100 100 Weight 81.64 kg Intake: Intake, IV Titration 100 100 Amount ceFAZolin 2 gm In Sodium 100 100 Chloride 0.9% 100 ml @ 100 mls/hr IVPB Q8HR ELIZABETH Rx#:[id number] Oral 100 Output: Urine 100 Other: Voiding Method Toilet Toilet # Voids 1 - Constitutional General appearance: Present: no acute distress - EENT EENT Comment(s): The 2 lesions in the right cheek, are unchanged Eyes: Present: EOMI, PERRLA ENT: Present: hearing grossly normal, normal oropharynx - Neck Neck: Present: lymphadenopathy (Confluent adenopathy, right upper neck.) - Respiratory Respiratory: bilateral: CTA - Cardiovascular Rhythm: regular Heart sounds: normal: S1, S2 - Gastrointestinal General gastrointestinal: Present: normal bowel sounds, soft - Integumentary Integumentary: Present: cyanotic, normal - Neurologic Neurologic: Present: CNII-XII intact - Musculoskeletal Musculoskeletal: Present: strength equal bilaterally - Psychiatric Psychiatric: Present: A&O x's 3 - Labs CBC & Chem 7: 11/27/16 07:21 11/27/16 07:21 Labs: Abnormal Lab Results - Last 24 Hours (Table) 11/27/16 11/27/16 Range/Units 07:21 11:38 WBC 11.7 H (3.8-10.6) k/uL Plt Count 140 L (150-450) k/uL POC Glucose (mg/dL) 157 H (75-99) mg/dL Microbiology - Last 24 Hours (Table) 11/24/16 13:36 Blood Culture - Preliminary Blood No Growth after 72 hours Assessment and Plan (1) Squamous cell carcinoma, face Narrative/Plan: The patient's clinical exam is unchanged. As noted previously, computed tomography scan of the chest does show evidence of adenopathy in the upper mediastinum. This is suspicious for spread of malignancy. The case was extensively discussed with the dermatology at the [facility]. They have indicated, they would like a repeat biopsy of the face lesions, and possibly FNA of the right lymph nodes. The question of scheduling the same was discussed. As the patient is likely to discharged from the hospital today, it was felt that he could get his biopsy at [place], very ENT have already been consulted. The dermatology service indicated, that they will call the patient to set up the same. Once the biopsy has been done, and diagnosis established, treatment recommendations were discussed at the [facility], and Indicated to the patient. Results of the CAT scan were discussed by email, with [place]. The reports of the CT of the head and neck, as well as chest will be faxed to them. Status: Acute (2) Nausea & vomiting Narrative/Plan: This appears to have been due to bacteremia. The patient is clinically improved with antibiotics. Case was discussed with the ID service. From their standpoint, the patient can be discharged home on by mouth antibiotics. Status: Acute
--- NOTE | 2016-11-28 01:59 | P.PN ---
Subjective She does significantly improved. Nausea and vomiting have resolved. Appetite is improved. Objective - Vital Signs Vital signs: Vital Signs Temp 97.8 F 11/27/16 14:53 Pulse 76 11/27/16 14:53 Resp 16 11/27/16 14:53 BP 131/65 11/27/16 14:53 Pulse Ox 92 L 11/27/16 14:53 Intake & Output 11/27/16 11/27/16 11/28/16 06:59 18:59 06:59 Intake Total 200 100 Output Total 100 Balance 100 100 Weight 81.64 kg Intake: Intake, IV Titration 100 100 Amount ceFAZolin 2 gm In Sodium 100 100 Chloride 0.9% 100 ml @ 100 mls/hr IVPB Q8HR ELIZABETH Rx#:[id number] Oral 100 Output: Urine 100 Other: Voiding Method Toilet Toilet # Voids 1 - Constitutional General appearance: Present: no acute distress - EENT EENT Comment(s): Lesions the right side of cheek stable Eyes: Present: EOMI, PERRLA ENT: Present: hearing grossly normal, normal oropharynx - Respiratory Respiratory: bilateral: CTA - Cardiovascular Rhythm: regular Heart sounds: normal: S1, S2 - Gastrointestinal General gastrointestinal: Present: normal bowel sounds, soft - Integumentary Integumentary Comment(s): 2 lesions, right side of face - Neurologic Neurologic: Present: CNII-XII intact - Musculoskeletal Musculoskeletal: Present: generalized weakness, strength equal bilaterally - Psychiatric Psychiatric: Present: A&O x's 3, appropriate affect - Labs CBC & Chem 7: 11/27/16 07:21 11/27/16 07:21 Labs: Abnormal Lab Results - Last 24 Hours (Table) 11/27/16 11/27/16 Range/Units 07:21 11:38 WBC 11.7 H (3.8-10.6) k/uL Plt Count 140 L (150-450) k/uL POC Glucose (mg/dL) 157 H (75-99) mg/dL Microbiology - Last 24 Hours (Table) 11/24/16 13:36 Blood Culture - Preliminary Blood No Growth after 72 hours Assessment and Plan (1) Squamous cell carcinoma, face Narrative/Plan: Computed tomography scan of the chest, confirms the presence of enlarged adenopathy in superior mediastinum, with largest lymph node measuring 2.5 cm. This is suspicious for metastasis. If positive, this would indicate stage IV disease. I did establish contact with a dermatology at the [facility]. Results of the scans were communicated to them We will be in touch with further recommendations Status: Acute (2) Nausea & vomiting Narrative/Plan: The patient's blood cultures have come back positive for Streptococcus . This was likely the cause of his symptoms. He is clinically improved with antibiotics. Status: Acute
== END 2016-11-27 15:50 | disposition home or self-care (01) | DRG 872 ==
LOC: EC 14:35 → 3OBS 19:00 → OBSVTOIN 19:00 → 5MS5E 11-26 10:30
PROVIDERS: ADMIT Hospitalist; ATTEND Hospitalist
DX: A40.1 Sepsis due to streptococcus, group B (principal); C77.0 Secondary and unspecified malignant neoplasm of lymph nodes of head, face and neck; L03.211 Cellulitis of face; I69.351 Hemiplegia and hemiparesis following cerebral infarction affecting right dominant side; E86.0 Dehydration; E11.9 Type 2 diabetes mellitus without complications; I10 Essential (primary) hypertension; C44.310 Basal cell carcinoma of skin of unspecified parts of face; E78.5 Hyperlipidemia, unspecified; K21.9 Gastro-esophageal reflux disease without esophagitis; Z79.899 Other long term (current) drug therapy; Z79.4 Long term (current) use of insulin; Z79.82 Long term (current) use of aspirin; Z79.84 Long term (current) use of oral hypoglycemic drugs; Z87.01 Personal history of pneumonia (recurrent); Z86.14 Personal history of Methicillin resistant Staphylococcus aureus infection; Z90.49 Acquired absence of other specified parts of digestive tract; Z95.2 Presence of prosthetic heart valve; Z85.6 Personal history of leukemia; Z96.641 Presence of right artificial hip joint; Z87.442 Personal history of urinary calculi; Z92.3 Personal history of irradiation
CPT/HCPCS: 36415; 70450; 70490; 71010; 71250; 71260; 74177; 80048; 80053; 81001; 82550; 82553; 83036; 83605; 83735; 84100; 84484; 85025; 85610; 85730; 87040; 87077; 87086; 87186; 94760; 96361; 96374; 99285

== ENCOUNTER → 2016-12-08 | Outpatient (CLI) | payer MEDICARE, BC ==
[2016-12-08 11:45] LABS: Aty Lym Flag Marked; CH 30.7; CHCM 32.5; HCT 41.5 % (39.0-53.0); HDW 2.95; HGB 13.2 gm/dL (13.0-17.5); MCH 30.2 pg (25.0-35.0); MCHC 31.7 g/dL (31.0-37.0); MCV 95.1 fL (80.0-100.0); Mean Platelet Volume 7.8; RBC 4.37 m/uL (4.30-5.90); RDW 14.7 % (11.5-15.5); WBC 13.9 k/uL (3.8-10.6)
[2016-12-08 12:26] LABS: Chloride 104 mmol/L (98-107); Glucose 204 mg/dL (74-99)
[2016-12-08 12:27] LABS: Anion Gap 10 mmol/L; Blood Urea Nitrogen 23 mg/dL (9-20); Calcium 9.1 mg/dL (8.4-10.2); Carbon Dioxide 26 mmol/L (22-30); Non-African American GFR(MDRD) >60 (>60 ml/min/1.73 sqM); Potassium 4.6 mmol/L (3.5-5.1); Sodium 140 mmol/L (137-145)
[2016-12-08 13:48] LABS: Add Differential Manual Differential
[2016-12-08 14:08] LABS: Nucleated Red Blood Cells 0 /100 WBC (0-0)
[2016-12-08 14:58] LABS: Band Neutrophils % 1 %; Total Cells Counted 100
[2016-12-10 07:37] LABS: Mis test requested (Blood) B-Cell Flow Cyto
== END | disposition home or self-care (01) ==
LOC: LABWHC1 10:59
PROVIDERS: ATTEND Nurse Practitioner
DX: D72.820 Lymphocytosis (symptomatic) (principal); L03.90 Cellulitis, unspecified; R78.81 Bacteremia
CPT/HCPCS: 36415; 80048; 85025; 88184; 88185

== ENCOUNTER → 2017-08-21 | Outpatient (CLI) | payer MEDICARE, BC ==
--- NOTE | 2017-08-21 12:45 | US ---
EXAMINATION TYPE: US venous doppler duplex UE LT DATE OF EXAM: 08/21/2017 COMPARISON: NONE CLINICAL HISTORY: R22.32 Swelling left upper arm. Swelling left forearm and hand occurring intermitte ntly per patient with current swelling x 1 day; Blood Cancer per patient with port in right subclavia n area. SIDE PERFORMED: left Edema channels noted by US in forearm and hand. Left Arm: Negative for DVT. Negative for SVT. Small left brachial veins are noted. IMPRESSION: No evidence for DVT at this time.
== END | disposition home or self-care (01) ==
LOC: RADUSWWP 11:45
PROVIDERS: ATTEND Internal Medicine Hematology & Oncology
DX: R22.32 Localized swelling, mass and lump, left upper limb (principal)

== ENCOUNTER 2017-09-29 10:21 | Emergency (ER) | payer MEDICARE, BC ==
[2017-09-29 10:33] VITALS: RESP 18
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
--- NOTE | 2017-09-29 11:48 | XR ---
EXAMINATION TYPE: XR ribs LT w pa chest xray DATE OF EXAM: 09/29/2017 CLINICAL HISTORY: Chest and left-sided rib pain after fall injury. TECHNIQUE: Single frontal view of the chest is obtained. A frontal and oblique images the left-sided ribs are acquired. COMPARISON: Chest x-ray November 24, 2016. CT chest November 25, 2016 FINDINGS: There is new right subclavian Mediport catheter terminating in SVC. There is new left basil ar lateral linear atelectasis. Right lung is clear. No significant pleural effusion or pneumothorax i s noted bilaterally. The cardiac silhouette size is stable and within normal limits with atherosclero tic and slightly ectatic aorta redemonstrated. Metallic stent graft in the aortic root is redemonst rated. The osseous structures are somewhat demineralized. Dedicated images of the left-sided ribs show some demineralization. No acute displaced left-sided rib fractures are clearly seen. Overlying soft tissue is unremarkable. IMPRESSION: 1. New left basilar lateral linear atelectasis. 2. No acute displaced left-sided rib fractures are seen.
--- NOTE | 2017-09-29 11:51 | XR ---
EXAMINATION TYPE: XR KUB DATE OF EXAM: 09/29/2017 11:41 AM CLINICAL HISTORY: Constipation per order TECHNIQUE: Two supine KUB images of the abdomen are obtained. COMPARISON: CT abdomen pelvis November 24, 2016. FINDINGS: Scattered gas is seen in non-distended small bowel loops. Gas and fecal material is seen in non-distended colon. Amount of fecal material is somewhat prominent in the transverse and left colon . Scattered pelvic phleboliths are seen. Cholecystectomy clips are redemonstrated. Metallic hardware from right hip surgery is partially imaged. There is additional vascular calcification over the pelvi s. IMPRESSION: Overall nonobstructive bowel gas pattern. Fairly moderate mid to distal colonic fecal stasis noted.
[2017-09-29] MEDS ORDERED: MAGNESIUM CITRATE 296 ML BOTTLE PO ONE (13:11)
[2017-09-29 14:23] VITALS: BP 151/67; PULSE 87; TEMP 97
== END 2017-09-29 14:23 | disposition home or self-care (01) ==
LOC: EC 10:21
DX: K56.41 Fecal impaction (principal); B37.2 Candidiasis of skin and nail; S51.012A Laceration without foreign body of left elbow, initial encounter; S51.811A Laceration without foreign body of right forearm, initial encounter; L89.212 Pressure ulcer of right hip, stage 2; R53.1 Weakness; R29.810 Facial weakness; K11.8 Other diseases of salivary glands; S50.812A Abrasion of left forearm, initial encounter; K64.9 Unspecified hemorrhoids; E78.5 Hyperlipidemia, unspecified; I10 Essential (primary) hypertension; E11.9 Type 2 diabetes mellitus without complications; Z79.4 Long term (current) use of insulin; Z79.899 Other long term (current) drug therapy; Z86.14 Personal history of Methicillin resistant Staphylococcus aureus infection; Z85.818 Personal history of malignant neoplasm of other sites of lip, oral cavity, and pharynx; Z92.3 Personal history of irradiation; Z96.641 Presence of right artificial hip joint; Z90.49 Acquired absence of other specified parts of digestive tract; W19.XXXA Unspecified fall, initial encounter
CPT/HCPCS: 74018; 99284